=== PATIENT | female | born 2000 | race Two or more races ===

== ENCOUNTER 2023-06-11 11:33 | Emergency (ER) | payer OTHER ==
[~2023-06-11] VITALS: Ht 149.9 cm; Wt 71.7 kg
[2023-06-11] MEDS ORDERED: 0.9 % SODIUM CHLORIDE 700 ML IV STA (13:38)
[2023-06-11 13:43] LABS: HEMATOCRIT 32.4 % (36.0-45.00); MEAN CORPUSCULAR HEMOGLOBIN 19.8 pg (27.00-32.0); MEAN CORPUSCULAR HGB CONC 30.8 g/dl (32.0-36.0); PLATELET COUNT 295 K/uL (150-450); RED BLOOD COUNT 5.04 M/uL (4.00-6.00); RED CELL DISTRIBUTION WIDTH 24.4 % (11.5-14.5)
[2023-06-11 13:44] LABS: MEAN CELL VOLUME 64.3 fL (80.00-100.00)
[2023-06-11 13:58] LABS: CALCIUM 8.8 mg/dL (8.5-10.1); CREATININE SERUM 0.66 mg/dL (0.55-1.02); GFR 111.99; POTASSIUM 3.86 mEq/L (3.5-5.1)
[2023-06-11] MEDS ORDERED: LORazepam 0.5 MG TABLET PO ONE (14:45)
== END 2023-06-11 14:49 | disposition home or self-care (01) ==
LOC: ER 11:33
PROVIDERS: Emergency Medicine
DX: F41.9 Anxiety disorder, unspecified (principal); R42 Dizziness and giddiness